=== PATIENT | female | born 1995 | race Caucasian/White ===

== ENCOUNTER 2019-12-19 08:26 | Emergency (ER) | payer OTHER ==
[~2019-12-19] VITALS: Ht 160 cm; Wt 83.9 kg
[2019-12-19] MEDS ORDERED: NORCO 5-325 TA1 EACH PO (08:48)
[2019-12-19] MEDS ORDERED: PENICILLIN V P500 MG PO (08:48)
== END 2019-12-19 08:58 | disposition home or self-care (01) ==
LOC: ED 08:26
DX: K04.7 Periapical abscess without sinus (principal)
CPT/HCPCS: 99282